=== PATIENT | male | born 1975 | race Caucasian/White ===

== ENCOUNTER 2016-07-13 16:47 | Emergency (ER) | payer MEDICAID ==
[2016-07-13] MEDS ORDERED: Morphine 2 MG/ML Syringe IVPUSH ONE (16:54)
[2016-07-13] MEDS ORDERED: Ketorolac 30 MG/ML SDV IVPUSH ONE (16:57)
[2016-07-13] MEDS ORDERED: Sodium Chloride 0.9% 10 ML Syringe FLUSH PRN (16:58)
--- NOTE | 2016-07-13 17:08 | EDM.PDOC ---
ED HPI Trauma - General Chief Complaint: Trauma Stated Complaint: Shoulder Injury Time Seen by Provider: 07/13/16 16:47 Source: Reports: Patient, Family, RN, RN notes reviewed History Limitations: Reports: No limitations - History of Present Illness INITIAL COMMENTS - FREE TEXT/NARRATIVE: Patient presents to the ED at [facility] after he sustained a crush injury to the left shoulder. Patient states he was working underneath a truck fixing the engine, when the jacks gave out, letting the truck loose. Patient states he was laying on his right side and the frame of the truck landed on his left shoulder, causing the crush injury. No previous left shoulder injuries. No previous left shoulder surgeries. Symptom Onset Date: 07/13/16 Symptom Onset Time: 16:00 Occurred When: just prior to arrival Occurred Where: home Method of Injury: direct blow (crush injury to left shoulder) Severity: severe Pain/Injury Location: Reports: upper extremity, left Consciousness: Reports: no loss of consciousness, remembers incident, remembers coming to hosp Allergies/ADRs: Allergies Penicillins Allergy (Verified 07/13/16 17:20) Shortness of Breath Home Medications: Ambulatory Orders Ibuprofen [Ibuprofen] 800 mg PO ASDIRECTED 02/18/16 [Confirmed 07/13/16] Past Medical History - Past Health History Medical/Surgical History: Denies Medical/Surgical History HEENT History: Reports: Other (see below) Other HEENT History: dental caries Other Musculoskeletal History: herniated disc in back Other Neuro History: narrowing in neck causing hands to go numb Social & Family History - Tobacco Use Smoking Status *Q: Current Every Day Smoker Years of Tobacco use: 20 Packs/Tins Daily: 1 Second Hand Smoke Exposure: No - Alcohol Use Days Per Week of Alcohol Use: 0 - Recreational Drug Use Recreational Drug Use: No Review of Systems - Review of Systems Review Of Systems: See Below Constitutional: Denies: chills, fever, weakness Respiratory: Denies: Shortness of Breath, Cough Cardiovascular: Denies: chest pain, palpitations Musculoskeletal: Reports: shoulder pain, muscle pain, muscle stiffness Skin: Reports: no symptoms Neurological: Denies: Dizziness, Headache, Numbness, Paresthesia, Tingling Trauma Exam - Physical Exam Exam: See Below Exam Limited By: No limitations General Appearance: Reports: alert, no apparent distress Head: Reports: atraumatic, normocephalic Eyes: bilateral eye: EOMI, normal inspection, PERRL Ears: Reports: normal external exam, normal canal, hearing grossly normal, normal TMs Nose: Reports: normal inspection, no blood Neck: Reports: non-tender, normal alignment Respiratory Exam: Reports: no respiratory distress, lungs clear, normal breath sounds Cardiovascular: Reports: regular rate, rhythm Extremities: Reports: bony-point tenderness, pain with movement, tenderness, other (severe pain with active ROM; unable to fully assess due to pain) Neurologic: Reports: alert, oriented x 3 Skin: Reports: Normal color, Warm/dry - [place] Coma Score Best Eye Response ([place]): (4) open spontaneously Best Verbal Response (Jared): (5) oriented Best Motor Response ([place]): (6) obeys commands [place] Total: 15 Course - Vital Signs Last Recorded V/S: Last Vital Signs Temp 35.9 C 07/13/16 17:49 Pulse 102 H 07/13/16 17:49 Resp 18 07/13/16 17:49 BP 135/78 07/13/16 17:49 Pulse Ox 94 L 07/13/16 17:49 - Orders/Labs/Meds Orders: Active Orders 24 hr Category Date Time Status Shoulder Comp Lt [CR] Stat Exams 07/13/16 18:26 Ordered Shoulder wo Cont Lt [CT] Stat Exams 07/13/16 17:01 Taken Sodium Chloride 0.9% [Saline Flush] Med 07/13/16 16:58 Active 10 ml FLUSH ASDIRECTED PRN Peripheral IV Insertion Adult [OM.PC] Routine Oth 07/13/16 16:58 Ordered Medication Orders Sodium Chloride (Saline Flush) 10 ml FLUSH ASDIRECTED PRN PRN Reason: Keep Vein Open Last Admin: 07/13/16 17:09 Dose: 10 ml Meds: Medications Generic Name Dose Route Start Last Admin Trade Name Freq PRN Reason Stop Dose Admin Sodium Chloride 10 ml 07/13/16 16:58 07/13/16 17:09 Saline Flush FLUSH 10 ml ASDIRECTED PRN Administration Keep Vein Open Discontinued Medications Generic Name Dose Route Start Last Admin Trade Name Freq PRN Reason Stop Dose Admin Ketorolac Tromethamine 30 mg 07/13/16 16:57 07/13/16 17:08 Toradol IVPUSH 07/13/16 16:58 30 mg ONETIME ONE Administration Morphine Sulfate 2 mg 07/13/16 16:54 07/13/16 17:08 Morphine IVPUSH 07/13/16 16:55 2 mg ONETIME ONE Administration Orphenadrine Citrate 60 mg 07/13/16 16:57 07/13/16 17:30 Norflex IM 07/13/16 16:58 60 mg Q12H ONE Administration - Radiology Interpretation Free Text/Narrative:: Soft tissue edema along the posterior aspect of the upper extremity, which could represent contusion in the setting of trauma. No underlying fracture or dislocation. CT Results Date: 07/13/16 CT Results Time: 18:24 Departure - Departure Time of Disposition: 18:32 Disposition: Home, Self-Care 01 Condition: good Clinical Impression: Injury of left shoulder and upper arm Qualifiers: Encounter type: initial encounter Qualified Code(s): S49.92XA - Unspecified injury of left shoulder and upper arm, initial encounter Left shoulder pain Qualifiers: Chronicity: acute Qualified Code(s): M25.512 - Pain in left shoulder Instructions: Shoulder Pain, Shoulder Range of Motion Exercises Referrals: PCP,None [Primary Care Provider] - Forms: ED Department Discharge Additional Instructions: 1. Stay well hydrated and rest 2. May alternate Tylenol/Advil as needed 3. CT/Xray does not show any dislocation or fracture 4. Keep trying to move your shoulder as able 5. See your Primary as symptoms warrant - Problem List Review Problem List Initiated/Reviewed/Updated: Yes - My Orders Last 24 Hours: My Active Orders 07/13/16 16:58 Sodium Chloride 0.9% [Saline Flush] 10 ml FLUSH ASDIRECTED PRN Peripheral IV Insertion Adult [OM.PC] Routine 07/13/16 17:01 Shoulder wo Cont Lt [CT] Stat 07/13/16 18:26 Shoulder Comp Lt [CR] Stat - Assessment/Plan Last 24 Hours: My Active Orders 07/13/16 16:58 Sodium Chloride 0.9% [Saline Flush] 10 ml FLUSH ASDIRECTED PRN Peripheral IV Insertion Adult [OM.PC] Routine 07/13/16 17:01 Shoulder wo Cont Lt [CT] Stat 07/13/16 18:26 Shoulder Comp Lt [CR] Stat
[2016-07-13 17:52] VITALS: BP 135/78
== END 2016-07-13 18:56 | disposition home or self-care (01) ==
LOC: VM.ED 16:47
DX: S49.92XA Unspecified injury of left shoulder and upper arm, initial encounter (principal); Z88.0 Allergy status to penicillin; Z87.891 Personal history of nicotine dependence; W20.8XXA Other cause of strike by thrown, projected or falling object, initial encounter
CPT/HCPCS: 73030; 73200; 96374; 96375; 99284; J1885; J2270; J2360; J7050